=== PATIENT | female | born 1950 | race Caucasian/White ===

== ENCOUNTER → 2017-04-30 | Outpatient (CLI) | payer SELFPAY ==
--- NOTE | 2017-04-30 09:06 | KCIC ---
PQRS Compliance Statement: One or more of the following individualized dose reduction techniques were utilized for this examination: 1. Automated exposure control 2. Adjustment of the mA and/or kV according to patient size 3. Use of iterative reconstruction technique Coronary calcium score CT chest without contrast History: 67-year-old female with upper cholesterolemia, peripheral arterial disease, and benign essential hypertension. Technique: With retrospective electrocardiogram gating 2.5 mm thick axial reconstructed noncontrast images of the chest at the level of the coronary arteries was performed. Images were post processed on a menuvox workstation and calcium score calculated using the modified Agatston Janowitz protocol. Findings: Total coronary calcium score is 486. This is a extensive plaque burden and very high cardiovascular disease risk. This is based on the calcium score of 0 of the left main coronary artery, 394.4 of the left anterior descending artery, score of 73 of the left circumflex artery and score of 18.6 of the right coronary artery. Noncoronary findings demonstrate normal cardiac size. No pericardial effusion. There is minimal scarring or atelectasis in the inferior lingula. Visualized lungs otherwise clear. IMPRESSION: Patient's total calcium score is 486. Electronically signed by: Ghanshyam Hanley MD (04/30/2017 9:03 AM) [id number]
== END | disposition home or self-care (01) ==
LOC: KCIC CT 08:07
PROVIDERS: ATTEND Family Medicine
DX: I10 Essential (primary) hypertension (principal); I73.9 Peripheral vascular disease, unspecified; I25.10 Atherosclerotic heart disease of native coronary artery without angina pectoris; E78.00 Pure hypercholesterolemia, unspecified; Z82.49 Family history of ischemic heart disease and other diseases of the circulatory system; Z87.891 Personal history of nicotine dependence
CPT/HCPCS: 75571

== ENCOUNTER → 2017-06-18 | Outpatient (CLI) | payer MEDICARE ==
--- NOTE | 2017-06-18 13:23 | KCIC ---
CHEST PA LATERAL History: Cough for 6 month, smoker of 40 years Comparison: None. Findings: There is no infiltrate, pneumothorax, or effusion. The cardiac silhouette is within normal limits in size. The trachea is in the midline. No acute osseous abnormality is identified. Impression: 1. There is no evidence of acute cardiopulmonary disease. CT would be more sensitive for detection of pulmonary nodules. Electronically signed by: Sotero Johnson MD (06/18/2017 1:20 PM) [id number]
== END | disposition home or self-care (01) ==
LOC: KCIC 12:41
PROVIDERS: ATTEND Family Medicine
DX: R91.8 Other nonspecific abnormal finding of lung field (principal); R05 Cough
CPT/HCPCS: 71020

== ENCOUNTER → 2018-04-14 | Outpatient (CLI) | payer MEDICARE ==
--- NOTE | 2018-04-14 16:35 | CARD ---
MR#: [id number] Date of Study: 04/14/2018 Ordering Physician: MARYLOU WARREN, Referring Physician: MARYLOU WARREN, Tech: Leydi Aiken APPROVED REPORT EXAM: Two-dimensional and M-mode echocardiogram with Doppler and color Doppler. Other Information Quality : GoodHR: 61bpm Rhythm : NSR INDICATION Murmur RISK FACTORS Hypertension Hyperlipidemia Smoking 2D DIMENSIONS RVDd2.3 (2.9-3.5cm)Left Atrium(2D)3.8 (1.6-4.0cm) IVSd0.8 (0.7-1.1cm)Aortic Root(2D)2.9 (2.0-3.7cm) LVDd4.6 (3.9-5.9cm)LVOT Diameter2.0 (1.8-2.4cm) PWd1.1 (0.7-1.1cm)LVDs3.3 (2.5-4.0cm) FS (%) 28.7 %SV54.0 ml LVEF(%)55.4 (>50%) Aortic Valve AoV Peak Frederic.109.6cm/sAoV VTI23.8cm AO Peak GR.4.8mmHgLVOT Peak Frederic.93.9cm/s AO Mean GR.3mmHgAVA (VMAX)2.69cm2 Mitral Valve MV E Zitebvgf37.3cm/sMV DECEL LKEU990wj MV A Lzlltank69.7cm/sE/A Ratio0.9 Pulmonary Valve PV Peak Rlvadzpu18.9cm/s Tricuspid Valve TR P. Wsymykia989ln/sRAP PEHRPOZZ8fuIt TR Peak Gr.97vwFfFERD09abNd Pulmonary Vein S1 Xkkykrzu50.5cm/sD2 Urkeoljs09.4cm/s PVa debtxubi96bsjd LEFT VENTRICLE The left ventricle is normal size. There is normal left ventricular wall thickness. The left ventricu lar systolic function is normal. The ejection fraction is estimated at 60%. There is normal LV segmen chastity wall motion. RIGHT VENTRICLE The right ventricle is normal size. There is normal right ventricular wall thickness. The right ventr icular systolic function is normal. ATRIA The left atrium size is normal. The right atrium size is normal. AORTIC VALVE The aortic valve is normal in structure and function. Doppler and Color Flow revealed trace aortic re gurgitation. There is no significant aortic valvular stenosis. MITRAL VALVE Mitral annular calcification is borderline. Doppler and Color-flow revealed trace mitral regurgitatio n. TRICUSPID VALVE The tricuspid valve is normal in structure and function. Doppler and Color Flow revealed trace tricus pid regurgitation. There is no tricuspid valve stenosis. PULMONIC VALVE The pulmonary valve is normal in structure and function. Doppler and Color Flow revealed trace pulmon ic valvular regurgitation. GREAT VESSELS The aortic root is normal in size. Normal pulmonary venous flow (Doppler). PERICARDIAL EFFUSION There is no evidence of significant pericardial effusion. Critical Notification Critical Value: No <Conclusion> The left ventricular systolic function is normal. The ejection fraction is estimated at 60%. There is normal LV segmental wall motion. Trace mitral regurgitation. Trace tricuspid regurgitation. There is no evidence of significant pericardial effusion. Signed by : Yassine Kim, Electronically Approved : 04/14/2018 16:33:58
--- NOTE | 2018-04-15 10:01 | RAD ---
MR#: [id number] Date of Study: 04/14/2018 Ordering Physician: MARYLOU WARREN, Referring Physician: MARYLOU WARREN, Tech: Chidi Coates, MARIIA, RDMS, RVT, RDCS, RTR APPROVED REPORT Patient Location: OUT-PATIENT Indications Rest Pain:Bilaterally VELOCITY AND DOPPLER WAVEFORM ANALYSIS RIGHT cm/secWaveformSeverity LEFT cm/secWaveform Severity dCFA 107.0TriphasicdCFA 114.0Biphasic Prof Fem Art. 75.0TriphasicProf Fem Art. 76.0Triphasic Fem Art Prox. 95.0TriphasicFem Art Prox. 95.0Biphasic Fem Art Mid. 83.0TriphasicFem Art Mid. 87.0Biphasic Fem Art Dist. 82.0TriphasicFem Art Dist. 66.0Biphasic Pop Art(Fossa) 63.0TriphasicPop Art(AK) 58.0Biphasic VAULT MAKER Prox. 70.0BiphasicPTA Prox. 59.0Biphasic VAULT MAKER Dist. 48.0BiphasicPTA Dist. 69.0Biphasic Per Art Mid. 74.0TriphasicPer Art Mid. 47.0Biphasic FRANCISCO J Prox. 56.0BiphasicATA Prox. 61.0Biphasic DPA 58BiphasicDPA 70Biphasic Findings Rae scale, color doppler images do not reveal any evidence of obstructive disease. Critical Notification Critical Value: No <Conclusion> No significant LE arterial disease. Signed by : Silverio Stanford, Electronically Approved : 04/15/2018 10:00:41
--- NOTE | 2018-04-15 10:03 | RAD ---
MR#: [id number] Date of Study: 04/14/2018 Ordering Physician: MARYLOU WARREN, Referring Physician: MARYLOU WARREN, Tech: Chidi Coates MBA, RDMS, RVT, RDCS, RTR APPROVED REPORT Patient Location: OUT-PATIENT Indications Rest Pain:Bilaterally Findings Right arm: 152 mm hg Right ankle: 150 mm hg Index 0.99 Left arm: 140 mm Hg Left ankle: 141 mm Hg Index: 0.99 Critical Notification Critical Value: No <Conclusion> Normal bilateral LASHONDA. Signed by : Silverio Stanford, Electronically Approved : 04/15/2018 10:02:05
== END | disposition home or self-care (01) ==
LOC: US 07:52
PROVIDERS: ATTEND Internal Medicine Cardiovascular Disease
DX: R01.1 Cardiac murmur, unspecified (principal); I10 Essential (primary) hypertension; E78.5 Hyperlipidemia, unspecified; E78.00 Pure hypercholesterolemia, unspecified; I25.10 Atherosclerotic heart disease of native coronary artery without angina pectoris; I73.9 Peripheral vascular disease, unspecified; Z82.49 Family history of ischemic heart disease and other diseases of the circulatory system; Z87.891 Personal history of nicotine dependence
CPT/HCPCS: 93306; 93922; 93925

== ENCOUNTER → 2018-11-13 | Outpatient (CLI) | payer MEDICARE ==
--- NOTE | 2018-11-13 12:35 | KCIC ---
BILATERAL SCREENING MAMMOGRAM, 3-D History: Routine screening. Comparison: Bilateral mammogram February 05, 2011. Technique: MLO and CC digital tomosynthesis (3D) images obtained. Radiologist reviewed these images on dedicated workstation. Findings: Breast Tissue Density A : The breasts are almost entirely fatty. There are no dominant masses, suspicious microcalcifications, or architectural distortion. IMPRESSION: No mammographic evidence of malignancy. Recommend routine screening. BI-RADS category 1: Negative. The images were reviewed with computer-aided detection. Patient information is entered into reminder system with a target due date for the next screening mammogram. Mammography is the most sensitive method for finding small breast cancers, but it does not detect them all and is not a substitute for careful clinical examination. A negative mammogram does not negate a clinically suspicious finding and should not result in delay in biopsying a clinically suspicious abnormality. "Our facility is accredited by the [employer] Mammography Program." Electronically signed by: Ghanshyam Hanley MD (11/13/2018 12:31 PM) [id number]
== END | disposition home or self-care (01) ==
LOC: KCIC MAMMO 08:29
PROVIDERS: ATTEND Family Medicine
DX: Z12.31 Encounter for screening mammogram for malignant neoplasm of breast (principal)
CPT/HCPCS: 77063; 77067

== ENCOUNTER → 2019-07-06 | Outpatient (CLI) | payer MEDICARE ==
--- NOTE | 2019-07-07 12:38 | SLEEP ---
DATE OF STUDY: 07/06/2019 STUDY: Sleep study. REFERRING PHYSICIAN: Lu Beltran MD PRIMARY CARE PHYSICIAN: Saleem Dawkins MD INDICATIONS: The patient is 69 years' old, who weighs 150 pounds with a BMI of 28. The patient's [place] score was 13. The patient underwent split night study performed at [facility]. FINDINGS: During the night study, the patient spent 413 minutes in bed and slept for 323 minutes with a sleep efficiency of 78%. Sleep latency was 25 minutes with a REM latency of 68 minutes. Sleep architecture showed normal stage 1 and stage 2 sleep, increased slow wave, and normal REM sleep. During the initial diagnostic portion of the study, the patient slept for 66 minutes. During that time, the patient had 4 obstructive apneas, no central or mixed apneas, and 17 hypopneas. The patient's apnea-hypopnea index was 19 per hour. The patient did not have supine or REM sleep during the diagnostic portion. EKG monitoring revealed normal sinus rhythm, average heart rate 81 beats per minute, no sustained arrhythmias observed. No PLMS seen. Nocturnal oximetry study revealed an average oxygen saturation of 92%, the lowest of 72%, and 23% of time oxygen saturation remained between 80% and 89%. The patient met the criteria for CPAP initiation. It was started at 5 cm water and titrated up to 9 cm water. At the final pressure, the patient slept for 209 minutes. The patient had supine as well as REM sleep. The patient's AHI was reduced to 3 per hour and oxygen saturation remained above 88%. The patient used a small-sized full face mask. IMPRESSION: 1. Moderate sleep apnea-hypopnea syndrome at an apnea-hypopnea index of 19 per hour. Absence of supine and REM sleep during the diagnostic portion can underestimate the severity of sleep apnea. 2. Nocturnal hypoxia secondary to obstructive sleep apnea but resolved with CPAP. 3. No clinically significant periodic limb movements. RECOMMENDATIONS: 1. CPAP at 9 cm water completely eliminated the patient's sleep apnea and should be used on a nightly basis. 2. Follow up in 4-6 weeks to assess compliance with CPAP and to document clinical improvement. 3. Avoid REED OR WIND INSTRUMENT REPAIRER depressants. 4. Cautioned regarding driving until symptoms of sleep apnea resolve with the use of CPAP. BEATRIS PORRAS MD DR: JEFF/ghassan JOB#: [id number] / [id number] LU Jo MD, TERRY MD
== END | disposition home or self-care (01) ==
LOC: SLPLAB 18:45
PROVIDERS: ATTEND Internal Medicine Pulmonary Disease
DX: G47.33 Obstructive sleep apnea (adult) (pediatric) (principal); G47.34 Idiopathic sleep related nonobstructive alveolar hypoventilation
CPT/HCPCS: 95810

== ENCOUNTER → 2019-09-14 | Outpatient (CLI) | payer MEDICARE ==
--- NOTE | 2019-09-14 10:19 | KCIC ---
UPPER GI AIR CONTRAST WITH KUB History: Hernia. GERD. Comparison studies: None. Technique: Upper GI study was performed utilizing double contrast upright examination and single contrast prone examination. Multiple spot fluoroscopic images were obtained in multiple obliquities. Findings: Barium passed probably to the stomach. No esophageal stenosis, occlusion or diverticulum. Normal appearance of the gastric mucosa. Small hiatal hernia. Contrast passed promptly into the duodenum and proximal jejunum. No stenosis or obstruction. Mild to moderate esophageal dysmotility with moderate amount of proximal escape and mild tertiary contractions. Gastroesophageal reflux was noted during the examination. Fluoroscopic time: 3 minutes 21 seconds Fluoroscopic images: 23 IMPRESSION: 1. Small hiatal hernia with gastroesophageal reflux. 2. Esophageal dysmotility. Electronically signed by: Zachary Enciso DO (09/14/2019 10:16 AM) [facility]
== END | disposition home or self-care (01) ==
LOC: KCIC 08:53
PROVIDERS: ATTEND Surgery
DX: K44.9 Diaphragmatic hernia without obstruction or gangrene (principal); K21.9 Gastro-esophageal reflux disease without esophagitis; K22.4 Dyskinesia of esophagus
CPT/HCPCS: 74240

== ENCOUNTER 2019-10-07 05:55 | Inpatient (IN) | payer MEDICARE ==
[2019-10-07] VITALS (10 sets, daily range): BP systolic 109–127; BP diastolic 58–79
[~2019-10-07] VITALS: Ht 154.9 cm; Wt 72.1 kg
[~2019-10-07 05:55] MED LIST: AMLO10TA8 PO; CHOL3000 PO; DICL75TA PO; METO50TA4 PO; PANT40TA77 PO
[2019-10-07] MEDS ORDERED: ceFAZolin SODIUM IV Push 1 GM VIAL. IVP PRN (06:00)
[2019-10-07] MEDS ORDERED: ONDANSETRON PF 4 MG/2 ML VIAL. IV PRN (07:00)
[2019-10-07] MEDS ORDERED: IV RINGERS,LACTATED 1000ML 1,000 ML IV SCH (07:00)
[2019-10-07] MEDS ORDERED: PROCHLORPERAZINE 10 MG/2 ML VIAL. IV PRN ×2 (07:00→10:15)
[2019-10-07] MEDS ORDERED: fentaNYL PF VIAL 100 MCG/2 ML VIAL IV PRN ×2 (07:00)
[2019-10-07] MEDS ORDERED: ONDANSETRON PF 4 MG/2 ML VIAL. ONE (07:08)
[2019-10-07] MEDS ORDERED: DEXAMETHASONE SOD PHOS 4 MG/ML VIAL ONE (07:08)
[2019-10-07] MEDS ORDERED: ROCURONIUM 100 MG/10 ML VIAL. ONE (07:08)
[2019-10-07] MEDS ORDERED: PROPOFOL 20 ML IV ONE (07:08)
[2019-10-07] MEDS ORDERED: LIDOCAINE 2% PF 5 ML VIAL. ONE (07:08)
[2019-10-07] MEDS ORDERED: SUCCINYLCHOLINE 200 MG/10 ML VIAL. ONE (07:09)
[2019-10-07] MEDS ORDERED: fentaNYL PF VIAL 100 MCG/2 ML VIAL ONE ×2 (07:09→09:36)
[2019-10-07] MEDS ORDERED: BUPIVACAINE-EPI 0.5%-1:200000 MPF 30 ML VIAL. ONE (07:12)
[2019-10-07] MEDS ORDERED: SURGICEL HEMOSTAT 4X8 EACH. ONE ×2 (07:12)
[2019-10-07] MEDS ORDERED: SEVOFLURANE 61 TO 120 MINUTES. IH ONE (07:46)
[2019-10-07] MEDS ORDERED: ePHEDrine PF IN SALINE 50 MG/10 ML SYRINGE. IV ONE (07:46)
[2019-10-07] MEDS ORDERED: PHENYLEPHRINE in 0.9% NACL PF 1 MG/10 ML SYRINGE. IV ONE ×2 (07:54→08:59)
[2019-10-07] MEDS ORDERED: GLYCOPYRROLATE 1 MG/5 ML VIAL. ONE (08:01)
[2019-10-07] MEDS ORDERED: NEOSTIGMINE METHYLSULFATE 5 MG/5 ML SYRINGE. ONE (08:01)
[2019-10-07] MEDS: IV NORMAL SALINE 1000ML BAG 1,000 ML IV SCH (10:02)
--- NOTE | 2019-10-07 10:12 | PDOC4 ---
Operative Note Operative Note Operative Note Preoperative Diagnosis: Hiatal hernia with gastroesophageal reflux disease Postoperative Diagnosis: Same Procedure: Laparoscopic repair of hiatal hernia with Porter fundoplication Surgeon: Tim Estrada.: Dr. Galvan Anesthesia: Gen. Estimated Blood Loss: 20 mL Specimen: None Drains: None Complications: None Indications: The patient is a 69 year old female who is referred due to GERD and a hiatal hernia. She was referred for surgical repair of the hernia and an antireflux procedure. The risks of surgery were discussed which include blee ding, infection, recurrent herniation, gastric or esophageal perforation, visceral injury, recurrent reflux, gas bloat syndrome, dysphasia, potential need for additional surgeries or procedures. She understands and would like to proceed. Description: The patient was taken to the operating room and placed supine on the operating table. General anesthesia was performed. The patient was then placed in lithotomy. The abdomen was prepped with ChloraPrep and draped in a standard surgical fashion. A small incision was made in the LUQ through which a visualized 5 mm trocar was inserted. A pneumoperitoneum was then created and the laparoscope was introduced. To the left of the umbilicus a 5 mm trocar was inserted. In the right lateral abdomen a 12 mm trocar was inserted through which a soft fan retractor was used to elevate the left lobe of the liver. In the right upper quadrant a 5 mm trocar was inserted. In the left upper quadrant an 11 mm trocar was inserted while in the left lateral abdomen a 5 mm trocar was inserted. Attention was then directed to the diaphragmatic hiatus. Initial inspection showed a small hiatal hernia. We began by opening the pars flacida using the harmonic scalpel. We mobilized the right yefri away from the esophagus and the dissection was carried well into the mediastinum. Some of the anterior attachments were also freed up. The dissection then continued over to the left side in the left yefri was mobilized as well.. The gastrocolic omentum was then opened with the Harmonic scalpel in the upper portion of the greater curvature. We then freed up the upper part of the greater curvature and fundus using the harmonic scalpel. Large blood vessels were doubly clipped and divided. The dissection continued all the way back up to the left yefri and any remaining splenic attachments were also mobilized. A Nedrow drain was then placed around the esophagus at the GE junction and clips were applied holding the Nedrow in place. With retraction on the Nedrow we were able to continue freeing up any remaining sac attachments particularly in the posterior location. At this point the GE junction was well within the abdominal cavity and the crura showed good integrity. The left and right yefri were then reapproximated with interrupted 2-0 silk sutures using the Endo Stitch device. The fundus was then wrapped around in a 360 fashion creating the fundoplication. A shoeshine maneuver was used to ensure no twists or kinks. An initial 2-0 Ethibond suture was used securing the fundic lips together. Another suture was placed superior to this which incorporated a small bite of the anterior esophagus. An additional suture was then placed inferiorly completing the fundoplication. At this point hemostasis was good, the hernia was well repaired with good coverage from the biologic mesh, and the fundoplication was intact with a nice orientation. The 11 and 12 mm trochars were then removed and the fascia closed with 0 Vicryl using an Endo Close. The remaining ports were removed and the pneumoperitoneum was relieved. Skin at all incisions was closed with 4-0 Monocryl. Steri-Strips and dressings were applied. The patient tolerated the procedure well. AUDREY ARRIAZA MD Oct 07, 2019 10:12
[2019-10-07] MEDS ORDERED: ONDANSETRON PF 4 MG/2 ML VIAL. IVP PRN (10:15)
[2019-10-07] MEDS ORDERED: HYDROmorphone 2 MG/ML VIAL IV PRN (10:15)
[2019-10-07] MEDS ORDERED: NALOXONE 0.4 MG/ML VIAL. IV PRN (10:15)
[2019-10-07] MEDS ORDERED: 0.9 % SODIUM CHLORIDE 10 ML DISP.SYRIN. IV PRN (10:15)
[2019-10-07] MEDS: MORPHINE SULFATE 2 MG/ML VIAL. IV PRN ×2 (10:23→10:27)
[2019-10-07] MEDS: HYDROmorphone 2 MG/ML VIAL IV PRN ×8 (10:37→23:56)
[2019-10-07] MEDS: POTASSIUM CL 20MEQ-0.45% NACL 1,000 ML IV SCH ×2 (11:38→19:54)
[2019-10-08 03:00] VITALS: BP 129/78
[2019-10-08] MEDS ORDERED: HYDROcodon/APAP 7.5/325MG ORAL 15 ML SOLUTION PO PRN (05:15)
[2019-10-08] MEDS: POTASSIUM CL 20MEQ-0.45% NACL 1,000 ML IV SCH ×2 (06:15→17:40)
[2019-10-08] MEDS: HYDROcodon/APAP 7.5/325MG ORAL 15 ML SOLUTION PO PRN ×3 (06:15→22:24)
[2019-10-08 07:00] VITALS: BP 140/72
[2019-10-08] MEDS: HYDROmorphone 2 MG/ML VIAL IV PRN ×2 (08:38→12:20)
--- NOTE | 2019-10-08 09:00 | NUR ---
SW following. Discussed with RN, pt from home with . Pt wanting to go home. Clear liquid diet, pt has not passed any gas yet. SW will continue to follow.
[2019-10-08] MEDS: IV NORMAL SALINE 1000ML BAG 1,000 ML IV SCH (10:02)
[2019-10-08 11:00] VITALS: BP 144/75
--- NOTE | 2019-10-08 13:19 | PDOC ---
DEANNA HOLT APRN 10/08/19 1318: SURGICAL PROGRESS NOTE Subjective rib pain, cough up to commode no reflux, taking liquids Vital Signs Vital Signs Date Time Temp Pulse Resp B/P (MAP) Pulse Ox O2 Delivery O2 Flow Rate FiO2 10/08/19 12:20 90 Nasal Cannula 2.0 10/08/19 11:00 97.8 75 16 144/75 (98) 97.8 I&O Intake and Output 10/08/19 07:00 Intake Total 1550 ml Output Total 620 ml Balance 930 ml Intake Oral 50 ml IV Total 1500 ml Output Urine Total 600 ml Estimated Blood Loss 20 ml General: Alert, Oriented X3, Cooperative Abdomen: Soft, Other (incisional TTP, dressings dry) Problem List POD#1 lap samy clears, oral meds ambulate AUDREY ARRIAZA MD 10/09/19 1401: SURGICAL PROGRESS NOTE Assessment/Plan Agree with above DEANNA HOLT APRN Oct 08, 2019 13:18 AUDREY ARRIAZA MD Oct 09, 2019 14:01
[2019-10-08] MEDS ORDERED: KETOROLAC 15 MG/ML VIAL. IVP PRN (14:15)
[2019-10-08 15:00] VITALS: BP 136/75
[2019-10-08 19:00] VITALS: BP 146/74
[2019-10-08 23:16] VITALS: BP 160/78
[2019-10-09] MEDS: POTASSIUM CL 20MEQ-0.45% NACL 1,000 ML IV SCH (03:24)
[2019-10-09 03:28] VITALS: BP 156/90
[2019-10-09 07:00] VITALS: BP 175/95
[2019-10-09] MEDS: HYDROcodon/APAP 7.5/325MG ORAL 15 ML SOLUTION PO PRN (07:52)
[2019-10-09 11:00] VITALS: BP 173/111
--- NOTE | 2019-10-09 12:20 | NUR ---
SW following. Discussed with RN, pt still wanting to go home, however has not passed any gas yet. RN advised no SW needs. SW will continue to follow.
[2019-10-09] MEDS ORDERED: HYDR15SO6 PO (12:34)
--- NOTE | 2019-10-09 12:41 | DISCH ---
DISCHARGE INSTRUCTIONS Condition on Discharge Condition on Discharge: Stable Activity After Discharge Activity Instructions for Disc: Resume previous activity Lifting Instructions after Dis: No heavy lifting (20 lbs), No pulling or pushing Driving Instructions after Dis: Do not drive (while taking pain medication) Diet after Discharge Diet after Discharge: Full Liquid (x 2 weeks, carbonated drinks ) Wound Incision Care Wound/Incision Care: May get incision wet, No wound care needed Contacting the DRElvin after DC Call your doctor for: Concerns you may have Follow-Up Follow up with: Dr Dumont 2 weeks, call to schedule [phone] DEANNA HOLT APRN Oct 09, 2019 12:41
--- NOTE | 2019-10-09 12:43 | PDOC ---
DEANNA HOLT DOOR OPENER 10/09/19 1243: SURGICAL PROGRESS NOTE Subjective tolerating diet no reflux pain managed Vital Signs Vital Signs Date Time Temp Pulse Resp B/P (MAP) Pulse Ox O2 Delivery O2 Flow Rate FiO2 10/09/19 11:00 98.0 103 18 173/111 (131) 96 Room Air 98.0 10/09/19 07:52 2.0 I&O Intake and Output 10/09/19 07:00 Intake Total 810 ml Output Total 1 ml Balance 809 ml Intake Oral 310 ml Other 500 ml Stool Total 1 ml # Voids 7 General: Alert, Oriented X3, Cooperative Abdomen: Soft, Other (ND, lap sites c/d/i, no erythema ) Assessment/Plan s/p Porter Full liquids x 2 weeks FU in office AUDREY ARRIAZA MD 10/09/19 1400: SURGICAL PROGRESS NOTE Assessment/Plan Agree with above DEANNA HOLT APRN Oct 09, 2019 12:43 AUDREY ARRIAZA MD Oct 09, 2019 14:00
--- NOTE | 2019-10-09 15:25 | NUR ---
Discharge Note: DENISE MCKEE Discharge instructions and discharge home medications reviewed with and a copy given. All questions have been answered and understanding verbalized. The following instructions and handouts were given: DIet, activity, medication list and follow up instructions provided to patient. Discontinued lines and drains: Peripheral IV discontinued and catheter intact. Patient discharged to Home or Self Care with Spouse via Wheelchair
== END 2019-10-09 13:45 | disposition home or self-care (01) | DRG 328 ==
LOC: SURG 05:55 → 4 NORTH 10:10
PROVIDERS: ADMIT Surgery; ATTEND Surgery
PROC: 0BUT4JZ Supplement Diaphragm with Synthetic Substitute, Percutaneous Endoscopic Approach (ICD-10-PCS; 2019-10-07)
PROC: 0DV44ZZ Restriction of Esophagogastric Junction, Percutaneous Endoscopic Approach (ICD-10-PCS; principal; 2019-10-07 07:30)
DX: K44.9 Diaphragmatic hernia without obstruction or gangrene (principal); K21.9 Gastro-esophageal reflux disease without esophagitis; Z79.899 Other long term (current) drug therapy
CPT/HCPCS: A7015; J0171; J0330; J0690; J1100; J1170; J1885; J2001; J2270; J2370; J2405; J2704; J2710; J3010; J3480; J3490; J7030; J7120; G0378

== ENCOUNTER → 2020-12-06 | Outpatient (CLI) | payer MEDICARE, OTHER ==
[~2020-12-06] MED LIST changes: +AMLO-187 PO; -AMLO10TA8 PO; +HYDR15SO6 PO
--- NOTE | 2020-12-06 11:40 | KCIC ---
Bilateral digital screening mammograms with 3-D tomosynthesis: Reason for examination: Routine screening. Comparison is made to previous studies dated 11/13/2018 and 02/05/2011. Bilateral mammograms in CC and oblique projections were obtained with 2-D imaging and 3-D tomosynthes is imaging on a Siemens Inspiration unit and reviewed on the workstation. Interpretation was made oanh garcia the benefit of CAD. The skin and nipples show no abnormalities. No abnormal axillary lymph nodes are seen. The breast par enchyma shows scattered fatty and fibroglandular density. (Breast density: Category B.) There continu e to be small nodules consistent with intramammary lymph nodes at the 10:00 B and 10:00 C positions o f the right breast which are stable. There are no new dominant masses, suspicious calcifications or a rchitectural distortion. Benign calcifications are present. Impression: No evidence of malignancy. Recommend routine screening. BI-RAD Category 2: Benign. "Our facility is accredited by the [employer] Mammography Program." This patient's information has been entered into a reminder system for the patient to be notified wit h the results of her examination and a target date for the next mammogram. Electronically signed by: Sherry Monahan MD (12/06/2020 11:38 AM) [id number]
== END ==
LOC: KCIC MAMMO 08:18
PROVIDERS: ATTEND Family Medicine
DX: Z12.31 Encounter for screening mammogram for malignant neoplasm of breast (principal)
CPT/HCPCS: 77063; 77067

== ENCOUNTER 2021-10-10 23:02 | Inpatient (IN) | payer MEDICARE, OTHER ==
[~2021-10-10] VITALS: Ht 154.9 cm; Wt 69.5 kg
[2021-10-10 23:46] LABS: BASO # 0.1 x10^3/uL (0.0-0.2); BASO % 1 % (0-3); EOS # 0.2 x10^3/uL (0.0-0.7); EOS % 2 % (0-3); HEMATOCRIT 37.4 % (36.0-47.0); HEMOGLOBIN 12.4 g/dL (12.0-15.5); LYMPH % 20 % (24-48); MEAN CORPUSCULAR HEMOGLOBIN 29 pg (25-35); MEAN CORPUSCULAR HGB CONC 33 g/dL (31-37); MEAN CORPUSCULAR VOLUME 87 fL (79-100); MONO # 0.7 x10^3/uL (0.0-1.1); MONO % 8 % (0-9); NEUT # 6.7 x10^3/uL (1.8-7.7); NEUT % 69 % (31-73); PLATELET COUNT 278 x10^3/uL (140-400); RED BLOOD COUNT 4.29 x10^6/uL (3.50-5.40); RED CELL DISTRIBUTION WIDTH 13.6 % (11.5-14.5); WHITE BLOOD COUNT 9.7 x10^3/uL (4.0-11.0)
[2021-10-10 23:54] LABS: CALCIUM 8.9 mg/dL (8.5-10.1); CREATININE 1.2 mg/dL (0.6-1.0); GFR 44.4; POTASSIUM 3.8 mmol/L (3.5-5.1)
[2021-10-11] VITALS (17 sets, daily range): BP systolic 121–188; BP diastolic 75–92
[2021-10-11] LABS: ALBUMIN 3.5 g/dL (3.4-5.0); ALBUMIN/GLOBULIN RATIO 0.9 (1.0-1.7); MAGNESIUM 1.8 mg/dL (1.8-2.4); TOTAL BILIRUBIN 0.3 mg/dL (0.2-1.0); TOTAL PROTEIN 7.5 g/dL (6.4-8.2)
--- NOTE | 2021-10-11 00:10 | RAD ---
AP chest x-ray HISTORY: Chest pain. FINDINGS: Heart size normal. Mediastinal silhouette is normal. Skinfold artifact right lateral lung b ase. No pneumothorax, pulmonary opacities or pleural effusions. Mild discoid atelectasis left lower l bernice base adjacent to the diaphragm. Bones unremarkable. IMPRESSION: No acute process. Mild discoid atelectasis of the left lung base. Electronically signed by: Arie Alanis MD (10/11/2021 12:07 AM) [facility]
--- NOTE | 2021-10-11 00:32 | EKG ---
[facility] [address] [place] [address] Test Date: 2021-10-10 Test Time: 23:10:59 Pat Name: EDNISE MCKEE Department: Room: Gender: F Sr Community Manager: : 1950 Requested By: ELMIRA VILA Order Number: [id number] Reading MD: Measurements Intervals [employer] Rate: 84 P: 38 MS: 136 QRS: -15 QRSD: 72 T: 11 QT: 372 QTc: 443 Interpretive Statements SINUS RHYTHM LEFT ATRIAL ABNORMALITY LEFTWARD AXIS ABNORMAL ECG RI6.02 No previous ECG available for comparison
--- NOTE | 2021-10-11 00:49 | PHYS DOC ---
Past Medical History Additional Past Medical Histor: HEART MURMUR Past Surgical History: No Surgical History Smoking Status: Current Every Day Smoker Alcohol Use: None General Adult EDM: Chief Complaint: CHEST WALL PAIN HPI: HPI: 71-year-old female past medical history of hypertension and restless leg syndrome, presents the ED with her , (patient consents to his/her/their knowledge and involvement in pts' medical care), complains of left-sided chest pressure and back pressure that started while patient was sitting down eating a bag of chips with associated lightheadedness at 10:30 PM. Patient states it was 10 out of 10 lasted for approximately 30 minutes. States pain did radiate into her back and left shoulder. Has never had these symptoms before. Mother with history of cardiac bypass at 67 and father with history of massive heart attack at 67. Reports she has been out of her lisinopril for 1 to 2 months. Denies any history of tobacco, cocaine, methamphetamine, alcohol or excessive caffeine use. Follows with Dr. Morelos -due to history of heartburn. Believes her last stress test and echocardiogram was 2 to 3 years ago. Saw Meek last week for her stable heart murmur. Is currently asymptomatic in the emergency department. Review of Systems: Review of Systems: Constitutional: Denies fever or chills. [] Eyes: Denies change in visual acuity. [] HENT: Denies nasal congestion or sore throat. [] Respiratory: Denies cough or shortness of breath. [] Cardiovascular: Denies palpitations or edema. [] GI: Denies abdominal pain, nausea, vomiting, bloody stools or diarrhea. [] : Denies dysuria or hematuria Musculoskeletal: Denies back pain or joint pain. [] Integument: Denies rash or diaphoresis Neurologic: Denies headache, focal weakness or sensory changes. [] Endocrine: Denies polyuria or polydipsia. [] Lymphatic: Denies swollen glands. [] Psychiatric: Denies depression or suicidal ideations Heart Score: C/O Chest Pain: Yes HEART Score for Chest Pain: HEART Score for Chest Pain Response (Comments) Value History Moderately Suspicious 1 ECG Nonspecific Repolarizatio 1 Age > 65 2 Risk Factors 1 or 2 Risk Factors 1 Troponin >1-<3x Normal Limit 1 Total 6 Risk Factors: Risk Factors: DM, Current or recent (<one month) smoker, HTN, HLP, family history of CAD, obesity. Risk Scores: Score 0 - 3: 2.5% MACE over next 6 weeks - Discharge Home Score 4 - 6: 20.3% MACE over next 6 weeks - Admit for Clinical Observation Score 7 - 10: 72.7% MACE over next 6 weeks - Early Invasive Strategies Allergies: Allergies: Allergies Coded Allergies Type Severity Reaction Last Updated Verified No Known Drug Allergies 10/07/19 No Physical Exam: PE: Constitutional: Well developed, well nourished, no acute distress, non-toxic appearance. HENT: Normocephalic, atraumatic, Eyes: EOMI, conjunctiva normal, no discharge. Neck: Normal range of motion, supple, Cardiovascular: S1/2 present, regular rhythm Lungs & Thorax: Speaking in full sentences, bilateral equal chest rise, no tachypnea or increased work of breathing Abdomen: soft, no tenderness, Skin: Warm, dry, no erythema, no rash. [] Back: No midline tenderness, no CVA tenderness. [] Extremities: No tenderness, no cyanosis, no lower extremity edema Neurologic: Alert and oriented X 3, normal motor function, normal sensory function, no focal deficits noted. [] Psychologic: Affect normal, judgement normal, mood normal. [] Current Patient Data: Labs: Laboratory Tests Test 10/10/21 23:10 White Blood Count 9.7 x10^3/uL (4.0-11.0) Red Blood Count 4.29 x10^6/uL (3.50-5.40) Hemoglobin 12.4 g/dL (12.0-15.5) Hematocrit 37.4 % (36.0-47.0) Mean Corpuscular Volume 87 fL (79-100) Mean Corpuscular Hemoglobin 29 pg (25-35) Mean Corpuscular Hemoglobin Concent 33 g/dL (31-37) Red Cell Distribution Width 13.6 % (11.5-14.5) Platelet Count 278 x10^3/uL (140-400) Neutrophils (%) (Auto) 69 % (31-73) Lymphocytes (%) (Auto) 20 % (24-48) L Monocytes (%) (Auto) 8 % (0-9) Eosinophils (%) (Auto) 2 % (0-3) Basophils (%) (Auto) 1 % (0-3) Neutrophils # (Auto) 6.7 x10^3/uL (1.8-7.7) Lymphocytes # (Auto) 2.0 x10^3/uL (1.0-4.8) Monocytes # (Auto) 0.7 x10^3/uL (0.0-1.1) Eosinophils # (Auto) 0.2 x10^3/uL (0.0-0.7) Basophils # (Auto) 0.1 x10^3/uL (0.0-0.2) Sodium Level 142 mmol/L (136-145) Potassium Level 3.8 mmol/L (3.5-5.1) Chloride Level 102 mmol/L (98-107) Carbon Dioxide Level 27 mmol/L (21-32) Anion Gap 13 (6-14) Blood Urea Nitrogen 16 mg/dL (7-20) Creatinine 1.2 mg/dL (0.6-1.0) H Estimated GFR (Cockcroft-Gault) 44.4 BUN/Creatinine Ratio 13 (6-20) Glucose Level 122 mg/dL (70-99) H Calcium Level 8.9 mg/dL (8.5-10.1) Magnesium Level 1.8 mg/dL (1.8-2.4) Total Bilirubin 0.3 mg/dL (0.2-1.0) Aspartate Amino Transferase (AST) 8 U/L (15-37) L Alanine Aminotransferase (ALT) 21 U/L (14-59) Alkaline Phosphatase 95 U/L (46-116) Troponin I High Sensitivity 65 ng/L (4-50) H CY-Tam-L-Type Natriuretic Peptide 225 pg/mL (0-124) H Total Protein 7.5 g/dL (6.4-8.2) Albumin 3.5 g/dL (3.4-5.0) Albumin/Globulin Ratio 0.9 (1.0-1.7) L Laboratory Tests 10/10/21 23:10 Laboratory Tests 10/10/21 23:10 Vital Signs: Vital Signs Date Time Temp Pulse Resp B/P (MAP) Pulse Ox O2 Delivery O2 Flow Rate FiO2 10/11/21 00:08 80 20 138/75 (96) 97 Room Air 10/10/21 23:05 97.6 97.6 EKG: EKG: Sinus rhythm 84 bpm, left axis deviation, normal intervals, T wave inversion lead III, no ST elevation or ST depression, no Q waves, no active chest pain on ED arrival Radiology/Procedures: Radiology/Procedures: IMAGING REPORT Signed PATIENT: DENISE MCKEE ACCOUNT: [id number] : 1950 LOCATION: ER AGE: 71 SEX: F EXAM STATUS: PRE ER ORD. PHYSICIAN: ELMIRA VILA DO REASON: cp PROCEDURE: PORTABLE CHEST 1V AP chest x-ray HISTORY: Chest pain. FINDINGS: Heart size normal. Mediastinal silhouette is normal. Skinfold artifact right lateral lung base. No pneumothorax, pulmonary opacities or pleural effusions. Mild discoid atelectasis left lower lung base adjacent to the diaphragm. Bones unremarkable. IMPRESSION: No acute process. Mild discoid atelectasis of the left lung base. Electronically signed by: Jono Alanis MD (10/11/2021 12:07 AM) [facility] [place] and SIGNED BY: JONO ALANIS MD DATE: 10/11/21 [id number] IMAGING REPORT Signed PATIENT: DENISE MCKEE ACCOUNT: [id number] : 1950 LOCATION: [address] [place] [address] AGE: 71 SEX: F EXAM STATUS: ADM IN ORD. PHYSICIAN: ELMIRA VILA DO REASON: cp radiates to back, r/o dissection, +trop;OMNI 350,75ML PROCEDURE: CT ANGIOGRAPHY CHEST CT angiography chest without and with contrast PQRS statement: CT scans at this facility use dose reduction including either automated exposure control, iterative reconstructions, and /or weight based radiation dosing via mA and kV modification when appropriate to reduce radiation dose to as low as reasonably achievable. HISTORY: Chest pain being back, back pain, dissection, elevated troponin. Contrast: Pre and postcontrast CT imaging with 75 mL Omnipaque 350 intravenous contrast with 3-D MIP and volume reconstructions of the arteries acquired. FINDINGS: There is no hyperdense intramural hematoma of the thoracic aorta on the noncontrast series evident. Thoracic aortic calcified plaque. Extensive coronary calcified plaque. No thoracic aortic aneurysm or dissection. Ascending aorta diameter is 3.3 cm. Heart size is normal. No pulmonary artery emboli. Esophagus is normal. No adenopathy in the chest. Surgical changes upper abdomen presumed gastric fundoplication. Small sclerotic focus right scapula presumably a bone island. Trachea and bronchi are unremarkable. There is mild bilateral apical subpleural or a fibrosis. No pulmonary opacities. No pleural effusions. Mild discoid atelectasis at the lateral basal left lower lobe adjacent to the diaphragm. IMPRESSION: No acute process. No thoracic aortic aneurysm or dissection. No pulmonary artery emboli. There is extensive coronary calcified plaque. Electronically signed by: Jono Alanis MD (10/11/2021 1:33 AM) [facility] [place]CTATED and SIGNED BY: JONO ALANIS MD DATE: 10/11/21 [id number] 0 Course & Med Decision Making: Course & Med Decision Making Pertinent Labs and Imaging studies reviewed. (See chart for details) Concern for NSTEMI/unstable angina in a well-appearing female with no active complaints in the ED. Patient asymptomatic in the emergency department. CTA of the chest unremarkable. HD stable, blood pressure in normal range. Will admit for further medical management with cardiology consulted. Patient stable at time of admission and agrees with this plan. I have spoken with the patient and/or caregivers. I have explained the patient's condition, diagnosis and treatment plan based on the information available to me at this time. I have answered the patient's and/or caregivers questions and answered any concerns. The patient and/or caregivers have as good an understanding of the patient's diagnosis, condition and treatment plan as can be expected at this point. The patient has been stabilized within the ca pability of the emergency department. The patient will be transported for further care and management or will be moved to an observation or inpatient service. I have communicated with the staff or medical practitioner taking over this patient's care. Billy Disclaimer: Billy Disclaimer: This electronic medical record was generated, in whole or in part, using a voice recognition dictation system. Departure Departure Impression: Primary Impression: NSTEMI (non-ST elevated myocardial infarction) Additional Impressions: Chest pain DESIRE (acute kidney injury) Disposition: ADMITTED INPATIENT Admitting Physician: REY (Dr. Bennett) Condition: STABLE Referrals: CLARENCE LOPEZ MD (PCP) ELMIRA VILA DO Oct 11, 2021 00:49
[2021-10-11] MEDS ORDERED: CONTRAST GIVEN. MC PRN ×2 (01:00→12:15)
[2021-10-11] MEDS ORDERED: IOHEXOL 350 MG/ML 100 ML VIAL. IV ONE (01:00)
--- NOTE | 2021-10-11 01:36 | RAD ---
CT angiography chest without and with contrast PQRS statement: CT scans at this facility use dose reduction including either automated exposure cont rol, iterative reconstructions, and /or weight based radiation dosing via mA and kV modification when appropriate to reduce radiation dose to as low as reasonably achievable. HISTORY: Chest pain being back, back pain, dissection, elevated troponin. Contrast: Pre and postcontrast CT imaging with 75 mL Omnipaque 350 intravenous contrast with 3-D MIP and volume reconstructions of the arteries acquired. FINDINGS: There is no hyperdense intramural hematoma of the thoracic aorta on the noncontrast series evident. Thoracic aortic calcified plaque. Extensive coronary calcified plaque. No thoracic aortic an eurysm or dissection. Ascending aorta diameter is 3.3 cm. Heart size is normal. No pulmonary artery e mboli. Esophagus is normal. No adenopathy in the chest. Surgical changes upper abdomen presumed gastr ic fundoplication. Small sclerotic focus right scapula presumably a bone island. Trachea and bronchi are unremarkable. There is mild bilateral apical subpleural or a fibrosis. No pulmonary opacities. No pleural effusions. Mild discoid atelectasis at the lateral basal left lower lobe adjacent to the mirza phragm. IMPRESSION: No acute process. No thoracic aortic aneurysm or dissection. No pulmonary artery emboli. There is extensive coronary calcified plaque. Electronically signed by: Arie Alanis MD (10/11/2021 1:33 AM) [facility]
--- NOTE | 2021-10-11 02:35 | NUR ---
Patient arrived to unit at approx 0130 via wheelchair with tech. Patient reports no pain, resting comfortably on RA. Patient states that she was just sitting at home when she began having chest pain/pressure "I felt like i was having a heart attack!" Patient states that she normally does not drink but had one wine cooler tonight at approx 7PM. States that she has been out of a couple of her medications for approx a month. Pt does not have list of medications with her at this time. Pt will attempt to get a list from her in the Am. Bed in low locked position, call light in reach. will continue to monitor.
[2021-10-11] MEDS ORDERED: HEPARIN for IV BOLUS 10,000 UNIT/10 ML VIAL. IV PRN (07:00)
[2021-10-11] MEDS ORDERED: ANTI-COAG MONITOR BY PHARMACY. MC PRN (07:00)
[2021-10-11] MEDS: HEPARIN 25,000UTS/250ML PREMIX 250 ML IV PRN ×2 (07:55→15:30)
[2021-10-11 09:59] LABS: CHOLESTEROL/HDL RATIO 6.3
--- NOTE | 2021-10-11 10:05 | EKG ---
[facility] [address] [place] [address] Test Date: 2021-10-11 Test Time: 10:01:04 Pat Name: DENISE MCKEE Department: Room: [facility] Gender: F Manager Care: ZAKIA : 1950 Requested By: VANE FRANCOIS Order Number: [id number] Reading MD: Measurements Intervals Morral Rate: 70 P: 31 NE: 142 QRS: -13 QRSD: 70 T: 2 QT: 400 QTc: 435 Interpretive Statements SINUS RHYTHM LEFTWARD AXIS OTHERWISE NORMAL ECG RI6.02 Compared to ECG 10/10/2021 23:10:59 Atrial abnormality no longer present
--- NOTE | 2021-10-11 10:33 | PDOC2 ---
VANE FRANCOIS NETWORK APPLICATIONS SPECIALIST 10/11/21 1033: CARDIAC CONSULT DATE OF CONSULT Date of Consult DATE: 10/11/21 TIME: 10:25 REASON FOR CONSULT Reason for Consult: Chest pain, elevated troponin REFERRING PHYSICIAN Referring Physician: Susie brooks SOURCE Source: Chart review, Patient HISTORY OF PRESENT ILLNESS HISTORY OF PRESENT ILLNESS This is a pleasant 71 yo female admitted for complains of chest pain. Reports midchest tightness started yesterday with ihigh intensity lasting about 15 min. Had some SOA at that time and radiated pain to left arm and neck and back. No recent falls or injury. No recent infection. No known CAD nor VTE or arrhythmias. Denies any nausea or vomiting, fever chills, and no dizziness or palpitations. PAST MEDICAL HISTORY Cardiovascular: HTN, Hyperlipidemia, Other (PAD) CENTRAL NERVOUS SYSTEM: Vertigo, Other (RLS) GI: Constipation, GERD Musculoskeletal: Osteoarthritis ENT: Allergic Rhinitis PAST SURGICAL HISTORY Past Surgical History: Hernia Repair (Laparoscopic repair of hiatal hernia with Porter fundoplication 2019), Hysterectomy, Other (back surgery, polypectomy of the colon) FAMILY HISTORY Family History: Diabetes, Heart Disease (father) SOCIAL HISTORY Smoke: Quit ALCOHOL: none Drugs: None Lives: with Family CURRENT MEDICATIONS CURRENT MEDICATIONS Current Medications Medications (Trade) Dose Ordered Sig/Zahida Route PRN Reason Start Time Stop Time Status Last Admin Dose Admin Iohexol (Omnipaque 350 Mg/ml) 90 ml 1X ONCE IV 10/11/21 01:00 10/11/21 01:01 DC 10/11/21 01:09 Heparin Sodium/ Dextrose 250 ml @ 8.34 mls/hr CONT PRN IV PER PROTOCOL 10/11/21 07:00 10/11/21 07:55 Info (Anti-Coagulation Monitoring By Pharmacy) 1 each PRN DAILY PRN MC PER PROTOCOL 10/11/21 07:00 10/11/21 06:54 ALLERGIES ALLERGIES: Coded Allergies: No Known Drug Allergies (Unverified , 10/07/19) ROS Review of System 14 point ROS evaluated with pertinent positives noted per HPI PHYSICAL EXAM General: Alert, Oriented X3, Cooperative, No acute distress HEENT: Atraumatic, Mucous membr. moist/pink Lungs: Clear to auscultation, Normal air movement Heart: Regular rate (SR), Normal S1, Normal S2, No murmurs Abdomen: Soft, No tenderness Extremities: No cyanosis, No edema Skin: No breakdown, No significant lesion Neuro: Normal speech, Sensation intact Psych/Mental Status: Mental status NL, Mood NL MUSCULOSKELETAL: Osteoarthritic changes both hands VITALS/I&O VITALS/I&O: Vital Signs Date Time Temp Pulse Resp B/P (MAP) Pulse Ox O2 Delivery O2 Flow Rate FiO2 10/11/21 08:00 Room Air 10/11/21 07:00 97.6 72 19 133/76 (95) 98 97.6 I & O 10/10/21 10/10/21 10/11/21 15:00 23:00 07:00 Intake Total 0 ml Balance 0 ml LABS Lab: Laboratory Tests Test 10/10/21 23:10 10/11/21 02:30 10/11/21 05:30 White Blood Count 9.7 x10^3/uL (4.0-11.0) Red Blood Count 4.29 x10^6/uL (3.50-5.40) Hemoglobin 12.4 g/dL (12.0-15.5) Hematocrit 37.4 % (36.0-47.0) Mean Corpuscular Volume 87 fL (79-100) Mean Corpuscular Hemoglobin 29 pg (25-35) Mean Corpuscular Hemoglobin Concent 33 g/dL (31-37) Red Cell Distribution Width 13.6 % (11.5-14.5) Platelet Count 278 x10^3/uL (140-400) Neutrophils (%) (Auto) 69 % (31-73) Lymphocytes (%) (Auto) 20 % (24-48) L Monocytes (%) (Auto) 8 % (0-9) Eosinophils (%) (Auto) 2 % (0-3) Basophils (%) (Auto) 1 % (0-3) Neutrophils # (Auto) 6.7 x10^3/uL (1.8-7.7) Lymphocytes # (Auto) 2.0 x10^3/uL (1.0-4.8) Monocytes # (Auto) 0.7 x10^3/uL (0.0-1.1) Eosinophils # (Auto) 0.2 x10^3/uL (0.0-0.7) Basophils # (Auto) 0.1 x10^3/uL (0.0-0.2) Sodium Level 142 mmol/L (136-145) Potassium Level 3.8 mmol/L (3.5-5.1) Chloride Level 102 mmol/L (98-107) Carbon Dioxide Level 27 mmol/L (21-32) Anion Gap 13 (6-14) Blood Urea Nitrogen 16 mg/dL (7-20) Creatinine 1.2 mg/dL (0.6-1.0) H Estimated GFR (Cockcroft-Gault) 44.4 BUN/Creatinine Ratio 13 (6-20) Glucose Level 122 mg/dL (70-99) H Calcium Level 8.9 mg/dL (8.5-10.1) Magnesium Level 1.8 mg/dL (1.8-2.4) Total Bilirubin 0.3 mg/dL (0.2-1.0) Aspartate Amino Transferase (AST) 8 U/L (15-37) L Alanine Aminotransferase (ALT) 21 U/L (14-59) Alkaline Phosphatase 95 U/L (46-116) Troponin I High Sensitivity 65 ng/L (4-50) H 381 ng/L (4-50) H 530 ng/L (4-50) H ND-Ioc-G-Type Natriuretic Peptide 225 pg/mL (0-124) H Total Protein 7.5 g/dL (6.4-8.2) Albumin 3.5 g/dL (3.4-5.0) Albumin/Globulin Ratio 0.9 (1.0-1.7) L Triglycerides Level 148 mg/dL (0-150) Cholesterol Level 278 mg/dL (0-200) H LDL Cholesterol, Calculated 204 mg/dL (0-100) H VLDL Cholesterol, Calculated 30 mg/dL (0-40) Non-HDL Cholesterol Calculated 234 mg/dL (0-129) H HDL Cholesterol 44 mg/dL (40-60) Cholesterol/HDL Ratio 6.3 Thyroid Stimulating Hormone (TSH) 1.192 uIU/mL (0.358-3.74) Laboratory Tests 10/10/21 23:10 Laboratory Tests 10/10/21 23:10 ASSESSMENT/PLAN ASSESSMENT/PLAN 1. NSTEMI: suspect ischemic in etiology 2. HTN: controlled 3. HLP: LDL 202 Recommendations 1. Uses zetia at home, start on statin. ASA. Restart home toprol. If could not tolerate statin then will need PCSK9i 2. Heparin drip on going 3. TTE, TSH 4. Will need ischemic workup. [facility] discussed risks and benefits and agreeable to proceed. MARYLOU WARREN MD 10/11/21 9475: CARDIAC CONSULT ASSESSMENT/PLAN ASSESSMENT/PLAN Patient seen and examined The patient is now pain-free. I agree with our nurse practitioners assessment and plan. NSTEMI: suspect ischemic in etiology. Now pain-free. In this setting agree with left heart catheterization and this was discussed with the patient. HTN: controlled. Continue present treatment. HLP: LDL 202. Start statin medication. Peripheral vascular disease. Continue present treatment. VANE FRANCOIS APRN Oct 11, 2021 10:33 MARYLOU WARREN MD Oct 11, 2021 16:45
[2021-10-11] MEDS ORDERED: ASPIRIN ENTERIC COATED 81 MG TABLET.DR. PO SCH (11:00)
[2021-10-11] MEDS ORDERED: METOPROLOL SUCC 24HR ER 50 MG TAB.ER.24H. PO SCH (11:00)
[2021-10-11] MEDS ORDERED: LIDOCAINE 1% Multi-Dose 20 ML VIAL. ONE (11:02)
[2021-10-11] MEDS ORDERED: IODIXANOL 320 MG/ML 100 ML VIAL. ONE ×3 (11:02→12:34)
[2021-10-11] MEDS ORDERED: HEPARIN for ARTERIAL LINE 1,500 ML ONE (11:03)
--- NOTE | 2021-10-11 11:36 | PDOC ---
MODERATE SEDATION ASSESSMENT RISKS/ALTERNATIVES Risks/Alternatives Risks and alternatives of this type of sedation and procedure discussed with: RISK/ALTERNATIVES: Patient H & P ON CHART H & P H & P on chart and reviewed for co-morbid conditions and appropriate labs. H&P ON CHART: Yes STATUS PREG STATUS ASSESSED: Yes MEDS/ALLERGIES REVIEWED Meds/Allergies Reviewed Medications and Allergies including time and route of recently administered narcotics and sedatives. MEDS/ALLERGIES REVIEWED: Yes ASA RATING ASA RATING: II AIRWAY ASSESSMENT Airway Assessment Airway patency, oral function limitations, presence of caps, crowns, dentures, partials, and ability to extend neck assessed. AIRWAY ASSESSMENT: Yes MALLAMPATI SCORE MALLAMPATI SCORE: II PRE-SEDATION ASSESSMENT PRE-SEDATION ASSESSMENT: Yes MARYLOU WARREN MD Oct 11, 2021 11:36
[2021-10-11] MEDS ORDERED: MIDAZOLAM HCL/PF 2 MG/2 ML VIAL. ONE (11:39)
[2021-10-11] MEDS ORDERED: fentaNYL PF VIAL 100 MCG/2 ML VIAL ONE (11:39)
[2021-10-11] MEDS ORDERED: NITROGLYCERIN OINT 1 GM PACKET. ONE (11:55)
[2021-10-11] MEDS ORDERED: IODIXANOL 320 MG/ML 100 ML VIAL. IART ONE (12:15)
[2021-10-11] MEDS ORDERED: fentaNYL PF VIAL 100 MCG/2 ML VIAL IV ONE (12:15)
[2021-10-11] MEDS ORDERED: NITROGLYCERIN OINT 1 GM PACKET. TP ONE (12:15)
[2021-10-11] MEDS ORDERED: MIDAZOLAM HCL/PF 2 MG/2 ML VIAL. IV ONE (12:15)
[2021-10-11] MEDS ORDERED: LIDOCAINE 1% Multi-Dose 20 ML VIAL. INJ ONE (12:15)
--- NOTE | 2021-10-11 12:27 | HP ---
DATE OF SERVICE: 10/11/2021 ADMIT DATE: 10/11/2021 CHIEF COMPLAINT: Chest pain. HISTORY OF PRESENT ILLNESS: The patient is a pleasant, relatively healthy 71-year-old female who does smoke. She presented to the ER with chest pain. While in the ER, we noted that her troponin was a little high at 65. We admitted her on a heparin drip. This morning her troponin is up to 381. We repeated it again now it is up to 530. We have consulted Cardiology. PAST MEDICAL HISTORY: Tobacco abuse. Previous cardiac murmur, she sees Dr. Polanco for this. Hypertension, chronic pain and GERD. ALLERGIES: None. FAMILY HISTORY: Coronary artery disease. SOCIAL HISTORY: She is . 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 She does smoke. No drink or drugs. MEDICATIONS: Reviewed, please refer to the MRAD. REVIEW OF SYSTEMS: GENERAL: No history of weight change, weakness or fevers. SKIN: No bruising, hair changes or rashes. EYES: No blurred, double or loss of vision. NOSE AND THROAT: No history of nosebleeds, hoarseness or sore throat. HEART: She complains of chest pain, although it has resolved a lot. LUNGS: Denies cough, hemoptysis, wheezing or shortness of breath. GASTROINTESTINAL: Denies changes in appetite, nausea, vomiting, diarrhea or constipation. GENITOURINARY: No history of frequency, urgency, hesitancy or nocturia. NEUROLOGIC: Denies history of numbness, tingling, tremor or weakness. PSYCHIATRIC: No history of panic, anxiety or depression. ENDOCRINE: No history of heat or cold intolerance, polyuria or polydipsia. EXTREMITIES: Denies muscle weakness, joint pain, pain on walking or stiffness. PHYSICAL EXAMINATION: VITALS: Within normal limits and are stable. GENERAL: No apparent distress. Alert and oriented. HEENT: Normal cephalic atraumatic, external auditory canals are patent EYES: Extraocular muscles are intact, pupils are equally round and reactive to light and accommodation MUSCULOSKELETAL: Well developed, well nourished, good range of motion ENDOCRINE: No thyromegaly was palpated LYMPHATICS: No cervical chain or axillary nodes were noted HEMATOPOIETIC: No bruising NECK: Supple, no JVD, no thyromegaly was noted. LUNGS: Clear to auscultation in all lung fernandez without rhonchi or wheezing. HEART: She has soft systolic ejection murmur. ABDOMEN: Soft, nontender. Positive bowel sounds no organomegaly, normal bowel sounds. EXTREMITIES: Without any cyanosis, clubbing, or edema. Pedal pulses intact, Homans sign is negative. NEUROLOGIC: Normal speech, normal tone. A and O x 3, moves all extremities, no obvious focal deficits. PSYCHIATRIC: Normal affect, normal mood. Stable. SKIN: No ulcerations or rashes, good skin turgor, no jaundice. VASCULAR: Good capillary refill, neurovascular bundle appears to be intact. LABORATORY DATA: Hematology is normal. Electrolytes are normal. Troponin started at 65. It is up to 530 now. Her creatinine slightly high at 1.2. ASSESSMENT AND PLAN: Chest pain with elevated troponin, suspect possible acute [place]. The patient has been admitted. We will consult Cardiology. We have her on a heparin drip. Continue her serial enzymes, serial EKGs, home meds. DVT prophylaxis. Full Code. We have made her n.p.o. for now. P.r.n. morphine. JAQUELINE/ELLEN/[facility] [place] [facility] [place]: JAQUELINE/ghassan TID: [id number]
--- NOTE | 2021-10-11 12:29 | NUR ---
SS following for discharge planning. SS reviewed pt chart and discussed with pt RN. Pt is from home with spouse and is currently on room air. COVID19 negative. Cardiology consulted. Heart cath today. SS will continue to follow for discharge planning. Addendum: 10/11/21 at 1452 by TIRSO JOHNSON SS Request for transfer to [facility] made for [facility]TS CABG. SS contacted [facility] transfer team, ; fax [phone], and faxed records as requested. Currently awaiting accepting hospitalist and bed. Packet, ambulance form, and transfer form on the chart. Pt's RN notified. Addendum: 10/11/21 at 1458 by TIRSO JOHNSON SS Pt accepted for transfer at [facility]. Bed# ICU10. Accepting Physician, Dr. Ayse Boles. Report# [id number]. Pt will discharge and transfer to [facility] via [facility] ambulance, . Pt's RN notified. Packet, ambulance form, and transfer form on the chart. Addendum: 10/11/21 at 1506 by TIRSO JOHNSON [facility] contacted SS and reported that there cab is down and [facility] needs to be contacted. [facility] contacted and pt scheduled for transfer at 1630. Pt's RN notified.
[2021-10-11] MEDS ORDERED: NITROGLYCERIN PREMIX 250 ML IV PRN (13:00)
--- NOTE | 2021-10-11 13:00 | NUR ---
Patient transferred to ICU room 107. Report given to Tabby MARIA. Patient being transferred to [facility] for CABG consult. R fem site clean, dry, intact. No sign of hematoma. Patient given instructions to keep leg straight, head on pillow. Order received to start Nitro gtt if needed to control HTN. MD notifying patient's of need to transfer.
[2021-10-11] MEDS ORDERED: MORPHINE SULFATE 2 MG/ML INJ. IVP PRN (13:45)
[2021-10-11] MEDS ORDERED: rOPINIRole 0.25 MG TABLET. PO SCH (14:00)
--- NOTE | 2021-10-11 16:11 | CARD ---
MR#: [id number] Date of Study: 10/11/2021 Ordering Physician: VANE FRANCOIS, Referring Physician: VANE FRANCOIS, [place]: Leidy Brambila APPROVED REPORT Procedures. Left heart catheterization Selective coronary angiogram Left ventriculogram Aortic root injection The patient is a 71-year-old female with a history of hypertension, hyperlipidemia and peripheral vas cular disease. She was admitted for episodes of chest discomfort and ruled in for non-ST elevated my ocardial infarction. In this setting a catheterization with possible intervention was recommended to the patient. Risks and benefits were discussed. The patient agreed to proceed. After informed consent was obtained the patient was brought to the heart catheterization lab. The ar ea the right femoral artery was prepared in usual manner with Betadine, sterile draping a local anest hetic. An 18-gauge needle was used to enter the right femoral artery, a wire placed and a 6 [place] sh eath placed over the wire. A 6 [place] JL4 diagnostic catheter was advanced the ascending aorta and u sed to engage the left system. It proved to have some damping and after several injections was remov ed and replaced with a JL 3.5 catheter. This catheter also had some dampening in the left main and w as removed. It was replaced again with a JL4. Several additional injections were performed with the last showing a clear left main lesion of 70% or greater. A 6 [place] Barber right diagnostic k[address] ter was then used to attempt to engage the right coronary artery but was unsuccessful. A JR4 diagnos tic catheter was also unsuccessful. A pigtail catheter was therefore advanced the ascending aorta in the left ventricle. Pressures were obtained. A 30 degree LU left ventriculogram was performed. P ullback pressures were measured. A 30 degree SHIRAZ aortic root injection was performed that did give a suggestion of the location of the right coronary artery. A multipurpose catheter was used without s uccess but a ARIAS graft catheter was able to obtain images of the right coronary artery. The cathete r was removed from the patient. The sheath was also removed from the patient and sealed with an Kristine o-Seal product. The patient was then moved to the intensive care unit. There were no immediate comp lications. Findings. Hemodynamics. LV of 168/12/18 aortic root of 164/78. Coronaries Left main. The left main had a greater than 70% lesion. There was damping with both a JL4 and a JL 3.5 catheter. Left anterior descending. The LAD was a moderate size vessel. It had a mid 30% lesion and a distal greater than 70% lesion in a small vessel. Left circumflex. The left circumflex is a dominant vessel. It had a mid 30% lesion and an obtuse ma rginal 1 lesion of 30%. Right coronary artery. The right heart is a small nondominant calcified vessel. It had a mid 90% le tsering. Left ventriculogram. The left ventricle was normal with an ejection fraction of greater than 60%. Aortic root. The aortic root was of normal size with no aortic insufficiency. <Conclusion> Significant left main disease. Intact LV systolic function. The findings were discussed with the patient. She will be referred for consideration of bypass surgery. Signed by : Guillermo Romero MD Electronically Approved : 10/11/2021 16:10:37
[2021-10-11] MEDS ORDERED: ATORVASTATIN CALCIUM 40 MG TABLET. PO SCH (21:00)
--- NOTE | 2021-10-12 08:06 | RAD ---
MR#: [id number] Date of Study: 10/11/2021 Ordering Physician: VANE FRANCOIS, Referring Physician: VANE FRANCOIS, Tech: Chidi Coates MBA, RDMS, RVT, RDCS, RTR APPROVED REPORT Patient Location: IN-PATIENT Indications PRE-OP CABG Vein Measurements Great Saphenous Small Saphenous RightLeft RightLeft Saph-Fem. Junction 3.80mm2.90mmProximal 1.00mm1.50mm Mid Thigh 3.20mm3.00mmMid 1.50mm1.20mm Distal Thigh 3.30mm2.60mmDistal 1.50mm1.00mm Proximal Calf 2.00mm2.10mm Mid Calf 1.80mm1.70mm Distal Calf 2.20mm2.10mm Findings Grayscale images of greater and lesser saphenous veins bilaterally were grossly unremarkable without any evidence of thrombus. Color duplex analysis was normal. Measurements of these veins at differen t levels, obtained as part of mapping prior to coronary artery bypass surgery, are as noted above. Critical Notification Critical Value: No <Conclusion> Venous mapping obtained prior to coronary bypass surgery resulted in measurements as noted above. Signed by : Yassine Kim, Electronically Approved : 10/12/2021 08:05:44
--- NOTE | 2021-10-12 08:10 | RAD ---
MR#: [id number] Date of Study: 10/11/2021 Ordering Physician: VANE FRANCOIS, Referring Physician: VANE FRANCOIS, Tech: Chidi Coates MBA, RDMS, RVT, RDCS, RTR APPROVED REPORT Patient Location: IN-PATIENT Laterality:Bilateral Indications PRE-OP CABG Doppler Spectral Velocity Analysis Right Left pCCA 69/19 cm/spCCA 128/25 cm/s mCCA 60/20 cm/smCCA 94/32 cm/s dCCA 67/23 cm/sdCCA 89/28 cm/s Bulb 74/23 cm/sBulb 82/26 cm/s ECA 183/ cm/sECA 91/ cm/s pICA 98/30 cm/spICA 86/37 cm/s Zaira 111/36 cm/smICA 117/46 cm/s dICA 106/39 cm/sdICA 106/42 cm/s Vert. 66/ cm/sVert. 56/ cm/s Subcl. 94/ cm/sSubcl. 67/ cm/s ICA/CCA 1.61ICA/CCA 0.91 Findings Grayscale images of extracranial carotid arteries bilaterally showed mild to moderate atherosclerotic plaque in the carotid bulbs. Spectral waveform and color duplex analysis showed normal velocities i n bilateral common and internal carotid arteries consistent with 0 to less than 50% stenosis. The ri t external carotid artery showed elevated velocities suggestive of moderate stenosis. The ICA to C CA ratios bilaterally are within normal limits. The vertebral arteries bilaterally showed antegrade flow with normal velocities. Critical Notification Critical Value: No <Conclusion> Carotid arterial duplex scan did not show any significant common or internal carotid artery stenosis bilaterally. The right external carotid artery showed moderate stenosis. Signed by : Yassine Kim, Electronically Approved : 10/12/2021 08:09:22
--- NOTE | 2021-10-12 11:36 | DS ---
DATE OF DISCHARGE: 10/11/2021 ADMITTING DIAGNOSIS: Chest pain. DISCHARGE DIAGNOSIS: Multivessel coronary artery disease. HOSPITAL COURSE: The patient is a pleasant middle-aged female who presented with chest pain. We admitted her, consulted Cardiology. She was taken to the labor/excavator. Dr. Polanco notify me yesterday that she had multivessel disease with greater than 70% stenosis of the left main. We transferred her to [facility] for consideration of bypass surgery. DISPOSITION: Transferred to [facility]. MEDICATIONS: Please see the MRAD. TOTAL TIME: 34 minutes. JAQUELINE/GAYATRI DR: JAQUELINE/ghassan TID: [id number]
== END 2021-10-11 17:15 | disposition short-term general hospital (02) | DRG 281 ==
LOC: ER 23:02 → 6 SOUTH 10-11 01:09 → 1 WEST ICU 10-11 12:50
PROVIDERS: ADMIT Internal Medicine; ATTEND Internal Medicine
PROC: B2111ZZ Fluoroscopy of Multiple Coronary Arteries using Low Osmolar Contrast (ICD-10-PCS; principal; 2021-10-11)
PROC: B2151ZZ Fluoroscopy of Left Heart using Low Osmolar Contrast (ICD-10-PCS; 2021-10-11)
PROC: B2181ZZ Fluoroscopy of Left Internal Mammary Bypass Graft using Low Osmolar Contrast (ICD-10-PCS; 2021-10-11)
PROC: 4A023N7 Measurement of Cardiac Sampling and Pressure, Left Heart, Percutaneous Approach (ICD-10-PCS; 2021-10-11)
DX: I25.10 Atherosclerotic heart disease of native coronary artery without angina pectoris (principal); I21.4 Non-ST elevation (NSTEMI) myocardial infarction; N17.9 Acute kidney failure, unspecified; E78.5 Hyperlipidemia, unspecified; F17.200 Nicotine dependence, unspecified, uncomplicated; G25.81 Restless legs syndrome; I10 Essential (primary) hypertension; I73.9 Peripheral vascular disease, unspecified; G89.29 Other chronic pain; K21.9 Gastro-esophageal reflux disease without esophagitis; M19.90 Unspecified osteoarthritis, unspecified site; Z82.49 Family history of ischemic heart disease and other diseases of the circulatory system; Z83.3 Family history of diabetes mellitus; Z90.710 Acquired absence of both cervix and uterus
CPT/HCPCS: 93458; 93567; 99285; G0269; 36415; 71045; 71275; 80053; 80061; 83735; 83880; 84443; 84484; 85025; 85520; 87426; 93005; 93880; 93970; 99152; 99153; C1769; C1894; J1644; J2250; J2270; J3010; J3490; Q9967; G0378